=== PATIENT | female | born 1990 | race Caucasian/White ===

== ENCOUNTER 2020-05-02 12:42 | Emergency (ER) | payer OTHER, MEDICAID, SELFPAY ==
[2020-05-02 12:51] VITALS: BP 121/76; PULSE 67; RESP 14; TEMP 36.2; O2SAT 98
--- NOTE | 2020-05-02 13:28 | ED_ITS ---
HPI - Recheck/Abnormal Lab/Rx <МАРИЯ Leon - Last Filed: 05/02/20 17:12> General Chief Complaint: Recheck/Abnormal Lab/Rx Stated Complaint: medication refill Time Seen by Provider: 05/02/20 13:08 Source: patient Mode of arrival: Ambulatory Limitations: no limitations History of Present Illness HPI narrative: This is a 29-year-old female, nonsmoker, who presents to ED with her 2 young sons in request of refill medication on acyclovir 400 mg tab that she uses for genital herpes symptoms suppressant. Patient reports has moved from [place] to [facility] last month and currently lives at [facility] and in process of getting her medical insurance and PCP set up. Patient denies any a Q symptoms from genital herpes. She had ran out of her medication 3 days ago. She reports feels safe at her living situation. She was referred to emergency room by her case management associate at the [facility] for refill medications for herself and her 2 young sons. LMP 04/02/2020. Related Data Home Medications Medication Instructions Recorded Confirmed Zoloft 05/02/20 Previous Rx's Medication Instructions Recorded acyclovir 400 mg PO DAILY 30 Days #30 tab 05/02/20 Allergies Allergy/AdvReac Type Severity Reaction Status Date / Time No Known Drug Allergies Allergy Verified 05/02/20 12:54 Review of Systems <МАРИЯ Leon - Last Filed: 05/02/20 17:12> Review of Systems Narrative: General: Denies fever, chills, fatigue, malaise, sweats. HEENT: Denies sinus pain, ear pain, sore throat, difficulty swallowing, dizziness. Respiratory: Denies dyspnea, cough, wheezing, hemoptysis, sputum. Cardiovascular: Denies chest pain, palpitations, orthopnea, edema. Gastrointestinal: Denies nausea, vomiting, abdominal pain, diarrhea, constipation, melena. : Denies dysuria, frequency, incontinence, hematuria, urinary retention. Musculoskeletal: Denies weakness, joint pain or bony pain. Skin: Denies rash, skin lesions, or other. Neurologic: Denies weakness, headache, numbness, change in speech, confusion, seizures, incoordination. Psychiatric: No concerning psychosocial issues. 12-point review of systems is negative except for those stated above. Patient History <МАРИЯ Leon - Last Filed: 05/02/20 17:12> Medical History Anxiety (Acute) Depression (Acute) Genital herpes (Acute) Social History Smoking Status: Never smoker Smoking Status: Never smoker alcohol intake frequency: 0-2 drinks per day Substance Use Type: marijuana Exam <МАРИЯ Leon - Last Filed: 05/02/20 17:12> Narrative Exam Narrative: General appearance: well developed, well nourished, in no acute distress. Head: normocephalic, atraumatic, no scalp lesions, non-tender. ENT: Hearing grossly intact. Airway patent. Neck/Thyroid: neck supple, full range of motion, no visible masses or meningeal signs. No JVD, non-tender without lymphadenopathy. Skin: no suspicious rashes, lesions over visible areas. Warm and dry and appropriate color for ethnicity. Heart: no clubbing, no cyanosis, no edema. S1 and S2 normal. RRR w/o murmurs, clicks, or bruits. Lungs: Breathing even and unlabored. No stridor. No accessory muscles used. Able to speak in full sentences. Chest: normal shape and expansion. Abdomen: non-obese, non-distended. Neurologic: alert and oriented. Cognitive exam, [employer] and PNS grossly intact on informal exam. Psych: good eye contact, normal affect. Initial Vital Signs Initial Vital Signs: Vital Signs Temperature 97.1 F L 05/02/20 12:51 Pulse Rate 67 05/02/20 12:51 Respiratory Rate 14 05/02/20 12:51 Blood Pressure 121/76 05/02/20 12:51 Pulse Oximetry 98 05/02/20 12:51 <Shen Lai MD - Last Filed: 05/02/20 19:42> Initial Vital Signs Initial Vital Signs: Vital Signs Temperature 97.1 F L 05/02/20 12:51 Pulse Rate 67 05/02/20 12:51 Respiratory Rate 14 05/02/20 12:51 Blood Pressure 121/76 05/02/20 12:51 Pulse Oximetry 98 05/02/20 12:51 Scores <МАРИЯ Leon - Last Filed: 05/02/20 17:12> GCS [place] coma scale eye opening: Spontaneous [place] coma scale verbal response: Orientated [place] coma scale motor response: Obey commands [place] coma scale total score: 15 Course <Paco FordМАРИЯ - Last Filed: 05/02/20 17:12> Orders Ordered: ED Orders 05/02/20 13:08 [facility] Assistant Professor Of Economics Stat Vital Signs Vital signs: Vital Signs - 8 hr 05/02/20 12:51 Temperature 97.1 F L Pulse Rate 67 Respiratory Rate 14 Blood Pressure 121/76 Pulse Oximetry 98 <Shen Lai MD - Last Filed: 05/02/20 19:42> Orders Ordered: ED Orders 05/02/20 13:08 [facility] Vital Signs Vital signs: Vital Signs - 8 hr 05/02/20 12:51 Temperature 97.1 F L Pulse Rate 67 Respiratory Rate 14 Blood Pressure 121/76 Pulse Oximetry 98 [facility] - Recheck/Abnormal Lab/Rx <Paco CroftWeiRenatoМАРИЯ montano - Last Filed: 05/02/20 17:12> Differential Diagnosis Differential diagnosis: Likely encounter for medication refill Medical Records Attestation: I reviewed the patient's medical records. [facility] Narrative Medical decision making narrative: This is a 29 year female who presents to ED with her 2 young sons in request of medication refill for acyclovir that she takes for genital herpes. Is in between primary care physician after she had moved to [facility] from [place] last month. She is working with her case management associate with community resources and finding primary care physician and counselors for her self and children. She has no other chief complain but medication refill which has been transmitted to [facility]. GALI Aly, also spoke with patient for additional community resource assistance. Patient provided with contact phone number for JAIR NATHAN in [place] for arranging PCP and [facility]. Discharge Plan Departure Patient Disposition: Home Clinical Impression: Encounter for medication refill Discharge Date/Time: 05/02/20 14:17 Instructions: DI for Genital Herpes Activity Restrictions/Additional Instructions: You have history of herpes infection and care for routine medication refill for acyclovir 400 mg daily. What to do: *Take your medications as directed. The medication has been transmitted to [facility] in town and please continue your medication regimen. *Follow up with your primary care provider call for an appointment. Let them know you were seen in the ED and that we asked you to be seen in follow up. *Return to ED if you have any new, worsening, or concerning symptoms, such as [chest pain, breathing difficulty, unable to tolerate fluids, or any acute concerns]. Welcome to town and hopefully you will be able to set up primary care physician for your children soon without difficulty. Prescriptions: New acyclovir 400 mg tablet 400 mg PO DAILY 30 Days Qty: 30 RF: 0 No Action Zoloft RF: 0 Referrals: [facility] [Outside]
--- NOTE | 2020-05-02 13:43 | CM.SWNOTE ---
SECURITY PROJECT MANAGER note SECURITY PROJECT MANAGER consult requested for patient and family. Patient is a 29 y/o female who presents to ED seeking medication refill for herself and two children. Patient recently relocated from [place] and is currently staying at [facility]. Each of patient's children has a prescription for a controlled substance/psych med. Per provider МАРИЯ Leon, patient able to articulate diagnoses and understanding of these substances, but was had been unable to fill on time due to time lapse of transferring insurance. SECURITY PROJECT MANAGER enters room and checks in with patient. Patient reports she is in active communication with [facility] to reinstate her insurance in [place], and understands that the ED is not meant for refilling prescriptions. Patient requests support with finding a PCP and counselor/psychiatrist in [place] for herself and children. SECURITY PROJECT MANAGER provides referral to [facility] for behavioral health support, and [facility] for primary care. Patient reports no other needs at this time. SECURITY PROJECT MANAGER provides update to provider, who will d/c patients at end of visit. GALI Hudson
== END 2020-05-02 14:17 | disposition home or self-care (01) ==
LOC: ED 13:52
PROVIDERS: Emergency Provider Nurse Practitioner Family
DX: Z76.0 Encounter for issue of repeat prescription (principal); A60.00 Herpesviral infection of urogenital system, unspecified
CPT/HCPCS: 99281